=== PATIENT | female | born 1995 | race Two or more races ===

== ENCOUNTER 2021-04-02 05:45 | Day surgery (SDC) | payer OTHER ==
[~2021-04-02 05:45] MED LIST: [UNRECOGNIZED DRUG - OTHER] PO
== END 2021-04-02 12:10 | disposition home or self-care (01) ==
LOC: CIR.AMB 05:45
PROVIDERS: ATTEND Surgery
DX: D24.2 Benign neoplasm of left breast (principal); Z20.822 Contact with and (suspected) exposure to COVID-19